=== PATIENT | female | born 2000 | race Caucasian/White ===

== ENCOUNTER 2020-02-07 21:55 | Emergency (ER) | payer OTHER ==
[2020-02-08] MEDS ORDERED: KETOROLAC TROMETHAMINE INJ/PF 30 MG/1 ML SDV IV ONE (01:57)
[2020-02-08] MEDS ORDERED: NORMAL SALINE 1000 ML 1,000 ML IV PRN (01:57)
[2020-02-08] MEDS ORDERED: DIPHENHYDRAMINE HCL 50 MG/ML VIAL IV ONE (01:57)
[2020-02-08] MEDS ORDERED: PROCHLORPERAZINE EDISYLATE INJ 10 MG/2 ML VIAL IV ONE (01:57)
--- NOTE | 2020-02-08 01:57 | ER Document Report ---
ED General - General Chief Complaint: Headache Stated Complaint: HEADACHE/VOMITING Time Seen by Provider: 02/08/20 01:42 Notes: Healthy 19-year-old female with history of migraine headaches presents to the emergency department with a typical migraine headache that is more severe than anyone she is ever had before. It is characterized as frontal in nature, throbbing, with associated photophobia. Patient also has nausea and vomiting. Patient states that the headache started yesterday at 6 AM, she went to work, and then her boss had to drive her home because symptoms were so severe. Patient has tried taking ibuprofen and Fioricet with no relief. No vision changes, no neck stiffness, no shortness of breath, no chest pain. No other complaints - Related Data Allergies/Adverse Reactions: No Known Allergies Allergy (Unverified 02/07/20 22:12) Home Medications: PROZAC. CONCERTA. TRAZADONE Past Medical History - Social History Smoking Status: Never Smoker Family History: None Patient has suicidal ideation: No Patient has homicidal ideation: No Renal/ Medical History: Reports: Hx Kidney Stones Review of Systems - Review of Systems Constitutional: See HPI EENT: See HPI Cardiovascular: See HPI Respiratory: See HPI Gastrointestinal: See HPI Genitourinary: No symptoms reported Female Genitourinary: No symptoms reported Musculoskeletal: No symptoms reported Skin: No symptoms reported Hematologic/Lymphatic: No symptoms reported Neurological/Psychological: See HPI Physical Exam - Vital signs Vitals: Temp Pulse Resp BP Pulse Ox 98.7 F 102 H 16 129/77 H 98 02/07/20 22:03 02/07/20 22:03 02/07/20 22:03 02/07/20 22:03 02/07/20 22:03 - Notes Notes: PHYSICAL EXAMINATION: Reviewed vital signs and charting by RN GENERAL: Alert, interacts well. No acute distress. HEAD: Normocephalic, atraumatic. EYES: Pupils equal and round. Extraocular movements intact. ENT: Oral mucosa moist, tongue midline. NECK: Full range of motion. Trachea midline. LUNGS: Clear to auscultation bilaterally, no wheezes, rales, or rhonchi. No respiratory distress. HEART: Regular rate and rhythm. No murmur ABDOMEN: soft, non-tender. No distention. Bowel sounds present EXTREMITIES: Moves all 4 extremities spontaneously. No edema, No cyanosis. 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 SKIN: Warm, dry, normal turgor. No rashes or lesions noted. Course - Re-evaluation Re-evalutation: 02/08/20 01:55 Patient presents with a typical migraine headache that is more severe than previous. Patient has a normal neurologic exam. Plan is to give patient a migraine cocktail, IV fluids, and reassess. 02/08/20 02:49 Patient received medications and completed most of first bag of saline. Patient states she feels much, much better. At this point patient is stable for discharge as I gave her the option if she wants a second bag of normal saline. Patient has been given strict return precautions. - Vital Signs Vital signs: Temp Pulse Resp BP Pulse Ox 97.7 F 87 16 116/65 99 02/08/20 03:26 02/08/20 03:26 02/08/20 03:26 02/08/20 03:26 02/08/20 03:26 Discharge - Discharge Clinical Impression: Migraine headache Qualifiers: Migraine type: without aura Status migrainosus presence: without status migrainosus Intractability: intractable Qualified Code(s): G43.019 - Migraine without aura, intractable, without status migrainosus Condition: Good Disposition: HOME, SELF-CARE Additional Instructions: You were seen today for a migraine headache. Please follow-up with your primary care doctor regarding today's ED visit. Return to emergency department immediately if you develop a headache that gets to its maximum severity within 20 minutes of onset, you pass out, you develop weakness, numbness, changes in your vision, become unable to keep any fluids down for more than 12 hours, or develop a fever greater than 100.4 degrees Fahrenheit. If you develop a similar migraine headache in the future I recommend that you immediately take 600 mg of ibuprofen and 50 mg of Benadryl and go to sleep as quickly as possible. This can often prevent your migraine headache from becoming severe. Forms: Return to Work
[2020-02-08 03:39] VITALS: BP 116/65
== END 2020-02-08 03:28 | disposition home or self-care (01) ==
LOC: ER 21:55
DX: G43.019 Migraine without aura, intractable, without status migrainosus (principal); H53.149 Visual discomfort, unspecified; R11.2 Nausea with vomiting, unspecified; Z79.899 Other long term (current) drug therapy
CPT/HCPCS: 99283; 96361; 96374; 96375; J1885; J0780; J7030